=== PATIENT | female | born 2005 ===

== ENCOUNTER → 2025-05-11 10:30 | Outpatient (REF) | payer OTHER, SELFPAY ==
--- OUTSIDE RECORDS SUMMARY | 2025-05-14 16:23 | XMS_ITS | Encounter Summary ---
Author Organization [facility] Address [address] [place] [address] [place] [phone] Phone Care Team Providers Care Electronics Teacher Name Role Phone Cora Pond CNP Primary Care Provider + Encounter Details Date Type Department Care Team (Late st Contact Info) Description 04/14/2025 Transcribe Orders Virtual Department [address] [place] [address] Cora Pond CNP [address] [place] [address] [email or web address] Abnormal uterine and vaginal bleeding, unspecified (Primary Dx) Social History Tobacco Use Types Packs/Day Years Used Date Smoking Tobacco: Never Assessed Education Answer Date Recorded Are you interested in more education? Not on rené e 04/14/2025 Are you concerned about learning? Not on file 04/14/2025 No 04/14/2025 No 04/14/2025 Digital Access Answer Date Recorded No 04/14/2025 No 04/14/2025 Reliable internet access at home? Not on file 04/14/2025 Device with a working camera? Not on file Comments Unknown Sex and Gender Information Value Date Recorded Sex Assigned at Not on file Legal Sex Female 2:45 PM EDT Gender Identity Not on file Sexual Orientation Not on file documented as of this encounter Plan of Treatment Not on file documented as of this encounter Visit Diagnoses Diagnosis Abnormal uterine and vaginal bleeding, unspecified- Primary documented in this encounter Care Teams Electronics Teacher Relationship Specialty Start Date End Date Cora Pond CNP [address] [place] [address] [email or web address] PCP - General Nurse Practitioner 04/14/25 documented as of this encounter Additional Source Comments The information contained in this document represents components of the legal health record. It is not the complete legal health record.[facility]
--- OUTSIDE RECORDS SUMMARY | 2025-05-14 16:23 | XMS_ITS | Encounter Summary ---
Author Organization [facility] Address [address] [place] [address] Care Team Providers Care Cold Reduction Roller Name Role Phone Kathie Hernandez Primary Care Provider [phone] Kathie Hernandez Unavailable [phone] Encounter Details Date Type Department Care Team (Late st Contact Info) Description 07/16/2024 Orders Only [facility] [address] [place] [address] Kathie Hernandez PA [address] [place] [address] Social History Tobacco Use Types Packs/Day Years Used Date Smoking Tobacco: Never Smokeless Tobacco: Never Alcohol Use Standard Drinks/Week Comments Never 0 (1 standard drink = 0.6 oz pur e alcohol) PHQ-2 Answer Date Recorded Patient Health Questionnaire-2 Score 0 07/16/2024 PHQ-9 Answer Date Recorded PHQ-9 Score 0 07/16/2024 Comments Unknown Sex and Gender Information Value Date Recorded Sex Assigned at Female 07/16/2024 11:38 AM EST Legal Sex Female 2:28 PM EST Gender Identity Female 07/16/2024 11:38 AM EST Sexual Orientation Straight 07/16/2024 11 :38 AM EST documented as of this encounter Functional Status * Over the past 2 weeks, how often have you been bothered by any of the following problems? Question Answer Date of Assessment Author Patient Health Questionnaire-2 Score 0 06/22 11:37 AM EST [employer], [employer]p Sadiq * Little interest or pleasure in doing things Answer Date of Assessment Author Not at all 07/16/2024 11:37 AM EST [employer], [employer] p [place] * Feeling down, depressed, or hopeless Answer Date of Assessment Author Not at all 07/16/2024 11:37 AM EST Ipad, Ph p Sadiq documented as of this encounter Miscellaneous Notes * Result Encounter Note - Kathie Hernandez PA - 07/16/2024 4:04 PM EST Labs are normal * Result Encounter Note - Lanie Patrick MA - 07/16/2024 4:04 PM EST Left detailed message documented in this encounter Plan of Treatment Upcoming Encounters Date Type Department Care Team (Latest Contact Info) Description 07/26/2025 2:15 PM EST CPE - Comprehensive Physical Exam [facility] [address] [place] [phone] Kathie Hernandez PA [address] [place] [phone] cpx lm to resched / RC not in 05/07/25 documented as of this encounter Procedures Procedure Name Priority Date/Time Associated Diagnosis Comments HEPATITIS C AB WITH REFLEX TO RNA PCR, SERUM Routine 07/16/2024 4:04 PM EST Encounter for routine laboratory testing CBC INCLUDES DIFFERENTIAL AND PLATELET COUNT Routine 07/16/2024 4:04 PM EST Encounter for routine laboratory testing LIPID PANEL WITH REFLEX TO DIRECT LDL Routine 07/16/2024 4:04 PM EST Encounter for routine laboratory testing COMPREHENSIVE METABOLIC PANEL WITH GFR Routine 07/16/2024 4:04 PM EST Encounter for routine laboratory testing documented in this encounter Results * CBC INCLUDES DIFFERENTIAL AND PLATELET COUNT (07/16/2024 4:04 PM EST) WBC 5.7 3.6 - 11.0 K/uL [facility] RBC 4.3 3.8 - 5.2 M/uL [facility] Hemoglobin 12.2 11.5 - 15.5 g/dL [facility] Hematocrit 39.0 35.0 - 47.0 % [facility] MCV 91 80 - 100 fL [facility] MCH 29 27 - 32 pg [facility] MCHC 31 31 - 35 g/dl [facility] RDW 13.3 12.0 - 16.1 % [facility] MPV 12.9 9.0 - 13.0 fL [facility] PLT 256 150 - 450 K/uL [facility] Neutrophils % 53.0 % [facility] Lymphocytes % 33.0 % [facility] Monocytes % 9.7 % [facility] Eosinophils % 2.5 % [facility] Basophils % 1.1 % [facility] Neutrophils # 3.01 1.50 - 7.80 K/uL [facility] Lymphocytes # 1.87 0.80 - 4.50 K/uL [facility] Monocytes # 0.55 0.20 - 1.00 K/uL [facility] Erythrocytes.nuc leated/100 leukocytes 0.0 0.0 - 1.0 /100WBC [facility] Erythrocytes.nuc leated 0.00 K/uL [facility] 07/16/2024 4:04 PM EST 07/16/2024 4:05 PM EST Narrative [facility] - 07/16/2024 4:18 PM EST Testing performed at [facility], [address] [place] [address], , Foil Operator: Nancy Jo MD CL#[id number] [facility] SAME DAY RESULT Final Re sult [facility] [address] [place] [address]. [place] [address], * (ABNORMAL) COMPREHENSIVE METABOLIC PANEL WITH GFR (07/16/2024 4:04 PM EST) Pathologist [facility] Glucose 77 65 - 99 mg/dL [facility] Comment:Fasting Reference In terval Urea Nitrogen Blood (BUN) 18 6 - 20 mg/dL [facility] Creatinine 0.7 0.4 - 1.1 mg/dL [facility] GFR 127 >=60 [facility] BUN/Creatinine Ratio 26(H) 6 - 25 [facility] Sodium 138 133 - 145 mmol/L [facility] Potassium 4.3 3.3 - 5.3 mmol/L [facility] Chloride 101 96 - 108 mmol/L [facility] Bicarbonate 24 22 - 32 mmol/L [facility] Anion gap 3 13 [facility] Calcium 9.8 8.6 - 10.5 mg/dL [facility] Protein Total (Serum) 7.4 6.2 - 8.2 g/dL [facility] Albumin 4.7 3.5 - 5.2 g/dl [facility] Alkaline phosphatase 78 35 - 105 U/L [facility] AST (SGOT) 21 4 - 32 U/L [facility] ALT (SGPT) 16 4 - 33 U/L [facility] Bilirubin Total 0.5 0.1 - 1.0 mg/dL [facility] Globulin 2.7 1.4 - 4.8 g/dl [facility] Albumin/Globulin 2 1 - 3 [facility] Osmolality 267 253 - 285 mOsm/kg [facility] 07/16/2024 4:04 PM EST 07/16/2024 4:05 PM EST Narrative [facility] - 07/16/2024 5:13 PM EST FASTING: YES Testing performed at [facility], [address] [place] [address], , Foil Operator: Nancy Jo MD CL#[id number] [facility] Final Result [facility] [address] [place] [address], * (ABNORMAL) LIPID PANEL WITH REFLEX TO DIRECT LDL (07/16/2024 4:04 PM EST) Cholesterol 135 0 - 199 mg/dL [facility] Triglyceride 37 0 - 150 mg/dL [facility] VLDL Cholesterol 7 5 - 40 mg/dL [facility] HDL Cholesterol 89(H) 50 - 80 mg/dL [facility] LDL Cholesterol 39 0 - 100 mg/dL [facility] Cholesterol Non-HDL 46 0 - 130 mg/dl [facility] CHOL/HDL Ratio 1.[address] [facility] 07/16/2024 4:0 4 PM EST 07/16/2024 4:05 PM EST Narrative [facility] - 07/16/2024 5:13 PM EST FASTING: YES Testing performed at [facility], [address] [place] [address], , Foil Operator: Nancy Jo MD CL#[id number] [facility] Final Result Performing Organization Address [facility] Co de Phone Number [facility] [address] [place] [address], * HEPATITIS C AB WITH REFLEX TO RNA PCR, SERUM (07/16/2024 4:04 PM EST) Hepatitis C virus Ab NON-REACT YOLI NON-REACT YOLI [facility] Comment:Antibodies to HCV we re not detected. NOTE: This does not entirely exclude the possibility of exposure to HCV since antibody production may lag infection. If there is a high suspicion of HCV infection HCV RNA testing may be of diagnostic value. 07/16/2024 4:04 PM EST 07/16/2024 4:05 PM EST Narrative [facility] - 07/16/2024 5:05 PM EST Testing performed at [facility], [address] [place] [address], , Foil Operator: Nancy Jo MD CL#[id number] [facility] Final Result Performing Organization Address City/[facility]/ZIP Co de Phone Number [facility] [address] [place] [address], documented in this encounter Visit Diagnoses Diagnosis Encounter for routine laboratory testing Laboratory examination ordered as part of a routine general medical examination documented in this encounter Care Teams Cold Reduction Roller Relationship Specialty Start Date End Date Kathie Hernandez PA [address] [place] [phone] PCP - General Internal Medicine 07/13/24 Kathie Hernandez PA [address] [place], [place] [phone] PCP - Backup PCP Internal Medicine 07/13/24 documented as of this encounter
--- OUTSIDE RECORDS SUMMARY | 2025-05-14 16:23 | XMS_ITS | Clinical Summary ---
Author Organization [facility] Address [address] [place] [address] Care Team Providers Care Dust Box Tender Name Role Phone Kathie Hernandez Primary Care Provider [phone] Kathie Hernandez Unavailable [phone] Allergies No known active allergies Medications Multiple Vitamin (Multivitamin Adult) Tab Take 1 tablet by mouth 1 (one) time each day. Active Multiple Vitamins-Mineral s (MULTIVITAMIN ADULTS OR) Take 1 tablet by mouth 1 (one) time each day. Active Active Problems Problem Noted Date Diagnosed Date Encounter for preventive health examination 06/22 Assessment & Plan (07/16/2024 12:40 PM EST): Counseled on below: Immunizations flu vaccine today (Left) Referred to Dr Bertha Washington for US, CBE, pelvic, pap q 3 yrs, reg SBE; condom use disc ABCD of melanoma. Apply SPF 30 daily, sun avoidance. Consume 2 servings of dietary calcium a day, 600 mg in a supplement and vitamin D3 2000 IU a day Schedule dental cleaning q 6 mths, Eye exam q 2 yrs Labs ordered Follow up annual sooner prn Immunizations Immunization Administration Dates Next Due COVID-19, mRNA (Pfizer Pre F all 2022) Monovalent, 30 mcg/0.3 ml 12/17/2020,11/13/2020 Covid-19, mRNA (Pfizer Pre F all 2022) Monovalent, 30 mcg/0.3 ml moose-sucrose (12+) 12/23/2021 Hep A - 04/22/2007,11/13/2005 Hep B - 08/07/2005, 5,2004,04/12 Hib - 08/07/2005,2004,2004 IPV 02/28/2009, 8,11/13/2005,08/17,2004 Influenza,MDCK,trivalent,PF (Flucelvax) 07/16/2024 Influenza,injectable,quad,Prsrv Fr 05/16/2021 Influenza,seasonal,trivalent ,preservat alana (FLUZONE MDV) 04/22/2007 MMR 03/31/2008,08/07/2005 Meningococcal ACWY (Menactra) 03/14/2021 Meningococcal ACWY (Menveo) 05/16/2015 Meningococcal B (Bexsero) 04/17/2021 Tdap 05/16/2015 Varicella 08/31/2008,04/16/2005 influenza,seasonal,trivalent ,PF (Fluzone, Fluarix, Flulaval) 04/24/2006 Social History Tobacco Use Types Packs/Day Years Used Date Smoking Tobacco: Never Smokeless Tobacco: Never Tobacco Cessation:Counseling Given: Not Answered Alcohol Use Standard Drinks/Week Comments Never 0 [...] Orientation Straight 07/16/2024 11 :38 AM EST Last Filed Vital Signs Vital Sign Reading Time Taken Comments Blood Pressure 112/62 07/16/2024 11:36 AM EST Pulse 68 07/16/2024 11:36 AM EST Temperature 36.8 C (98.2 F) 07/16/2024 11:36 AM EST Respiratory Rate 16 07/16/2024 11:36 AM EST Oxygen Saturation - - Inhaled Oxygen Concentration - - Weight 58.5 kg (129 lb) 07/16/2024 11:36 AM EST Height 162.6 cm (5' 4 ) 07/16/2024 11:36 AM EST Body Mass Index 22.14 07/16/2024 11:36 AM EST Plan of Treatment Upcoming Encounters Date Type Department Care Team (Latest Contact Info) Description 07/26/2025 2:15 PM EST CPE - Comprehensive Physical Exam [facility] [address] [facility] [place] [address] Kathie Hernandez PA [address] [place] [address] cpx lm to resched / RC not in 05/07/25 Health Maintenance Due Date Last Done Comments HPV Vaccine (1 - 3-dose series) 2019 Chlamydia 2020 Pap Smear 2020 Meningococcal B (2 of 2 - Bexsero SCDM 2-dose series) 10/15/2021 04/17/2021 COVID-19 Vaccine ( - season) 2025 12/23/2021, 12/17/2020, 11/13/2020 Influenza (#1) 2025 07/16/2024, 04/22, 04/22/2007, Additional history exists DTaP/Tdap/Td (2 - Td or Tdap) 05/16/2025 05/16/2015 Zoster (Shingrix) (1 of 2) 2054 08/31/2008, Hep B Completed 08/07/2005, 07/23, 2004, Additional history exists Hib Completed 08/07/2005, 07/23, 2004 Hep A Completed 04/22/2007, 11/13/2005 MMR Completed 03/31/2008, 08/07/2005 Varicella Completed 08/31/2008, 04/16/2005 Polio (IPV/OPV) Completed 02/28/2009, 03/22, 11/13/2005, Additional history exists Meningococcal ACWY Completed 03/14/2021, 05/16/2015 Hepatitis C Screening Completed 07/16/2024 LDL Cholesterol Discontinued 07/16/2024 Physical Discontinued 07/16/2024 Pneumococcal Aged Out No longer eligi ble based on patient's age to complete this topic Procedures Procedure Name Priority Date/Time Associated Diagnosis Comments HEPATITIS C AB WITH REFLEX TO RNA PCR, SERUM Routine 07/16/2024 4:04 PM EST Encounter for routine laboratory testing LIPID PANEL WITH REFLEX TO DIRECT LDL Routine 07/16/2024 4:04 PM EST Encounter for routine laboratory testing from Last 3 Months or Most Recently Relevant to Health Maintenance Results * HEPATITIS C AB WITH REFLEX TO RNA PCR, SERUM (07/16/2024 4:04 PM EST) Hepatitis C virus Ab NON-REACT ALANA NON-REACT ALANA [facility] Comment:Antibodies to HCV we re not detected. NOTE: This does not entirely exclude the possibility of exposure to HCV since antibody production may lag infection. If there is a high suspicion of HCV infection HCV RNA testing may be of diagnostic value. 07/16/2024 4:04 PM EST 07/16/2024 4:05 PM EST Narrative [facility] - 07/16/2024 5:05 PM EST Testing performed at [facility], [address] [place] [address], , Disc Pad Grinding Machine Feeder: Nancy Jo MD CL#[id number] [facility] Final Result [facility] [address] [place] [address]. [place] [address], * (ABNORMAL) LIPID PANEL WITH REFLEX TO DIRECT LDL (07/16/2024 4:04 PM EST) Cholesterol 135 0 - 199 mg/dL [facility] Triglyceride 37 0 - 150 mg/dL [facility] VLDL Cholesterol 7 5 - 40 mg/dL [facility] HDL Cholesterol 89(H) 50 - 80 mg/dL [facility] LDL Cholesterol 39 0 - 100 mg/dL [facility] Cholesterol Non-HDL 46 0 - 130 mg/dl [facility] CHOL/HDL Ratio 1.5 [facility] 07/16/2024 4:04 PM EST 07/16/2024 4:05 PM EST Narrative [facility] - 07/16/2024 5:13 PM EST FASTING: YES Testing performed at [facility], [address] [facility], [place] [address], , Disc Pad Grinding Machine Feeder: Nancy Jo MD CL#[id number] [facility] Final Result [facility] [address] [place] [address], from Last 3 Months or Most Recently Relevant to Health Maintenance Insurance Care Teams Dust Box Tender Relationship Specialty Start Date End Date Kathie Hernandez PA [address] [place] [address] PCP - General Internal Medicine 07/13/24 Kathie Hernandez PA [address] [place] [address] PCP - Backup PCP Internal Medicine 07/13/24
--- OUTSIDE RECORDS SUMMARY | 2025-05-14 16:23 | XMS_ITS | Clinical Summary ---
Author Organization [facility] [employer] [facility] Address [address] [facility] [place] [address] Care Team Providers Care Iron Molder Helper Name Role Phone Pcp, No Primary Care Provider Allergies No known active allergies Medications No known medications Immunizations Immunization Administration Dates Next Due PPD Test 12/05/2023 Social History Tobacco Use Types Packs/Day Years Used Date Smoking Tobacco: Never Smokeless Tobacco: Never Tobacco Cessation:Counseling Given: Not Answered Comments No Sex and Gender Information Value Date Recorded Sex Assigned at Not on file Legal Sex Female 12:04 PM EDT Gender Identity Not on file Sexual Orientation Not on file Last Filed Vital Signs Vital Sign Reading Time Taken Comments Blood Pressure 110/64 12/08/2023 3:07 PM EDT Pulse 68 12/08/2023 3:07 PM EDT Temperature 36.8 C (98.3 F) 12/08/2023 3:07 PM EDT Respiratory Rate 12 12/08/2023 3:07 PM EDT Oxygen Saturation 99% 12/08/2023 3:07 PM EDT Inhaled Oxygen Concentration - - Weight 57.6 kg (127 lb) 12/08/2023 3:07 PM EDT Height 162.6 cm (5' 4 ) 12/08/2023 3:07 PM EDT Body Mass Index 21.8 12/08/2023 3:07 PM EDT Plan of Treatment Health Maintenance Due Date Last Done Comments Depression: Screening Annually using PHQ-2/9 in Adults 18 yrs or above (or HM Modifier)([facility]) 2022 Hepatitis C Virus Infection in Adolescents and Adults: Screening (or Modifier) ([facility]) 2022 SDOH Screening Reminder: Annually for all adults ([facility] ) 2022 Tobacco Smoking Cessation: i n Adults excluding Women: Behavioral and Pharmacotherapy Interventions ([facility] ) 2022 Flu Vaccination: Yearly for ages 18mos through 64 years (or Modifier)([facility] ) 02/19/2025 05/16/2021 COVID-19 Vaccine Screening: Initial Series and Booster Status ([facility]) ( season) 2025 12/17/2020, 11/13/2020 Cervical Cancer Screenin-65 yrs of age (or Modifier) 2025 Cervical Cancer Screening: Pap every 3 yrs pts age 21-65 2025 Cervical Cancer: Pap Screening with Modifier timing ([facility] ) 2025 Cervical Cancer: hrHPV alone or with cotesting Pap for Pts 30-65yrs screening every 5yrs ([facility] ) 2025 DTaP/Tdap/Td Vaccines ([facility]) (7 - Td or Tdap) 05/16/2025 05/16/2015, 08/31/2008, 11/13/2005, Additional history exists Zoster/Shingles Vaccine Series Screening: Adults aged 18+ yrs (or HM Modifiers)([facility]) (1 of 2) 2054 08/31/2008, 04/16/2005 Pneumococcal Vaccination Screening: Pts 0-19 & 19-49 yrs of age ([facility]) Aged Out 04/16/2005, 2004, 2004, Additional history exists No longer eligible based on patient's age to complete this topic Medical Devices Not on file Insurance ZEINA Babcock [id number] [employer] Care Teams Iron Molder Helper Relationship Specialty Start Date End Date Pcp, Eulalia PCP - General Family Medicine 12/05/23
--- OUTSIDE RECORDS SUMMARY | 2025-05-14 16:23 | XMS_ITS | Clinical Summary ---
Author Organization [facility] Address [address] [place], [place] [phone] Phone Care Team Providers Care Contract Attorney Name Role Phone Cora Pond CNP Primary Care Provider + Encounters Date Type Department Care Team Description 04/14/2025 Transcribe Orders Virtual Department [address] [place] [id number] Cora Pond CNP Abnormal uterine and vaginal bleeding, unspecified (Primary Dx) from Last 3 Months Social History Tobacco Use Types Packs/Day Years [...] on file Sexual Orientation Not on file Plan of Treatment Not on file Medical Devices Not on file Insurance LUCY GRAY [employer] [facility] [employer] Care Teams Contract Attorney Relationship Specialty Start Date End Date Cora Pond CNP [address] [place] [phone] [email or web address] PCP - General Nurse Practitioner 04/14/25 Additional Source Comments The information contained in this document represents components of the legal health record. It is not the complete legal health record.[facility]
== END ==
LOC: HO.CARD 10:30
PROVIDERS: Visit Provider Physician Assistant
DX: R00.2 Palpitations (principal)
CPT/HCPCS: 93242